=== PATIENT | female | born 1965 | race Caucasian/White ===

== ENCOUNTER 2025-05-04 16:13 | Emergency (ER) | payer BC ==
[~2025-05-04] VITALS: Ht 172.7 cm; Wt 63.7 kg
--- NOTE | 2025-05-04 17:11 | RADIOLOGY REPORT ---
DI CHEST,TWO VIEWS INDICATION: SOB TECHNIQUE: Two views of the chest COMPARISON: None FINDINGS/IMPRESSION: LUNGS: Bibasilar hazy alveolar opacities, incompletely characterized consider follow-up CT of the chest. Biapical pleural-parenchymal scarring. pleural- parenchymal scarring. Consideration for underlying pneumonia MEDIASTINUM: Unremarkable BONES: No acute osseous abnormality OTHER: None
[2025-05-04 17:26] LABS: MEAN PLATELET VOLUME 7.4 FL (7.4-10.4); RED CELL DISTRIBUTION WIDTH 13.4 % (11.5-14.5)
[2025-05-04 17:43] LABS: CREATININE 0.62 MG/DL (0.40-0.90); PRO BRAIN NATRIURETIC PEPTIDE 672 PG/ML (0-125); TOTAL CARBON DIOXIDE 29.0 MMOL/L (24-32); eCRCL 96 ML/MIN; eGFR > 90 ML/MIN
--- NOTE | 2025-05-04 18:24 | Physician Documentation ---
History of Present Illness ~ Chief Complaint: Shortness of Breath Stated Complaint: RIB PAIN,COUGH Time Seen by MD: 19:27 HPI This is a 59-year-old female who presents with cough, shortness breath, and lower chest pain with coughing. Patient reports that over the past kev roximately one-week she has had pain in both her right lower chest and left lower chest with coughing, patient reports currently pain in left lower chest. Patient reports history of pleurisy and reports pain is consistent with a previous pleurisy flare-ups. Patient reports no other acute symptoms or concerns. Medication Reconciliation Allergies: Coded Allergies: No Known Allergies (Unverified , 05/04/25) Review of Systems ROS As stated above in the HPI, otherwise all systems are reviewed and negative. Physical Exam Vital Signs: Heart Rate: 81, Respiratory Rate: 16, BP: 111/40, Pulse Oximetry: 98, Weight: 63.700 Oxygen Flow Rate: 0 Physical Exam VITALS: Reviewed and as above. GENERAL: Alert, nontoxic appearing, no apparent distress. HEENT: RESPIRATORY: No increased work of breathing, no respiratory distress, speaking in full clear sentences, clear lung sounds in all soler CHEST: CV: Regular rate and rhythm no murmur BACK: GI: MUSCULOSKELETAL: SKIN: NEURO: PSYCH: Progress Results/Orders Results/Orders Orders - STAR PACHECO MD Ct Chest (05/04/25 19:50) Completed Orders - STAR PACHECO MD Procalcitonin (05/04/25 19:27) Ct Chest (05/04/25 19:50) Iohexol 300mg/Ml 100ml Inj. (Omnipaque-3 (05/04/25 20:25) Vital Signs 05/04/25 05/04/25 05/04/25 05/04/25 16:27 19:50 19:51 21:28 Pulse 81 74 72 Resp 16 18 16 B/P (MAP) 111/40 119/81 (94) 106/55 (72) Pulse Ox 98 99 98 O2 Flow Rate 0 Laboratory Tests Test 05/04/25 17:03 White Blood Count 13.2 H Red Blood Count 3.90 L Hemoglobin 11.8 L Hematocrit 34.8 L Mean Corpuscular Volume 89.2 Mean Corpuscular Hemoglobin 30.2 Mean Corpuscular Hemoglobin Concent 33.8 Red Cell Distribution Width 13.4 Platelet Count 286 Mean Platelet Volume 7.4 Neutrophils (%) (Auto) 80.6 H Lymphocytes (%) (Auto) 7.8 L Monocytes (%) (Auto) 10.3 Eosinophils (%) (Auto) 0.7 Basophils (%) (Auto) 0.6 Neutrophils # (Auto) 10.6 H Lymphocytes # (Auto) 1.0 L Monocytes # (Auto) 1.4 H Eosinophils # (Auto) 0.1 Basophils # (Auto) 0.1 CBC Comment Sodium Level 145 Potassium Level 3.6 Chloride Level 110 H Carbon Dioxide Level 29.0 Anion Gap 6 L Blood Urea Nitrogen 20 H Creatinine 0.62 Estimated GFR/1.73 m2 > 90 BUN/Creatinine Ratio 32.3 H Glucose Level 100 Calcium Level 8.8 Pro-B-Type Natriuretic Peptide 672 H Albumin 2.1 L Procalcitonin 0.35 Chemistry Comments Medical Decision Making Findings Patient presented to the emergency room for evaluation of chest pain and cough. Differentials include but are not limited to pneumonia, pneumothorax, pulmonary embolism, musculoskeletal pain, ACS therefore emergent labs and imaging indicated. Abnormal chest x-ray that has concern for possible malignancy therefore CT scan was performed which was unusual as well and recommending close follow up. Given patient's history we will begin antibiotics. Vitals reassuring and she is nontoxic appearing and I believe she will do well on outpatient basis with close follow up. Departure Disposition: HOME / SELF CARE / HOMELESS Impression: Primary Impression: Pneumonia Additional Impression: Abnormal CT of the chest Condition: Stable Discharge Instructions: Community-Acquired Pneumonia, Adult Additional Instructions: You had an abnormality seen on your CT scan of indeterminate significance. recommend short-term imaging follow-up in 6-8 weeks to exclude malignancy in the meantime we will treat you for pneumonia. Referrals: NO PRIMARY CARE PROVIDER (PCP) Prescriptions Levofloxacin (Levofloxacin) 500 Mg Tablet 1 TAB PO DAILY for 10 Days, #10 TAB Prov: STAR PACHECO MD 05/04/25 Education Educated: Patient Educated regarding: diagnosis, treatment, need for follow up Signature Scribe Signature: No scribe Attestation: The note accurately reflects work and decisions made by me.Star Pacheco MD 05/04/25 21:37 KILLINA MORRISSEY May 04, 2025 18:24 STAR PACHECO MD May 04, 2025 21:37
[2025-05-04] MEDS ORDERED: iohexol 300mg/ml 100ml inj. ONE (20:25)
--- NOTE | 2025-05-04 20:54 | RADIOLOGY REPORT ---
EXAM: CT CT CHEST W/ IV CONTRAST HISTORY: abn cxr TECHNIQUE: CT angiogram was performed. CT scans at this facility use dose modulation, iterative reconstruction, and/or weight based dosing when appropriate to reduce radiation dose to as low as reasonably achievable. Coronal and sagittal reformations and maximum intensity projection images were created from the transaxial source data by the histology technologist and workstation, as well as 3-D volume rendered images with MIPs. COMPARISON: None FINDINGS: [LOWER NECK]: Unremarkable [LYMPH NODES/MEDIASTINUM]: Right lower paratracheal lymph node, 1.4 cm. Subcarinal lymph node, 1.4 cm. Right hilar lymph node, 1.4 cm. [CARDIOVASCULAR]: Normal cardiac size. No pericardial effusion. No aneurysmal dilatation of the great vessels. No significant coronary artery calcifications. [PULMONARY ARTERIES]: No pulmonary arterial filling defect. Normal caliber of the main pulmonary artery. No evidence of elevated right heart pressures. [UPPER ABDOMEN]: Unremarkable. [MUSCULOSKELETAL]: No acute fracture or aggressive focal osseous lesion. Multilevel degenerative change of the visualized spine. [CHEST WALL]: Unremarkable. [LUNG PARENCHYMA/PLEURAL SPACE]: Trace areas of paraseptal emphysema. Large area of masslike consolidation with air bronchograms in the right middle lobe primarily affecting the lateral segment, measuring 6.5 x 6.4 cm. Additional areas of ground-glass and central areas of consolidation in the right lower lobe, inferior lingula and anterior basilar segment, left lower lobe. No pleural effusion or pneumothorax. IMPRESSION: 1. No definitive pulmonary embolism. 2. Large area of masslike consolidation in the right middle lobe with additional areas of ground-glass and central areas of consolidation in the right lower lobe, inferior lingula and anterior basilar segment, left lower lobe. 3. Mediastinal and right hilar lymphadenopathy. 4. Differential consideration for infection however recommend short-term imaging follow-up in 6-8 weeks to exclude malignancy.
[2025-05-04] MEDS ORDERED: LEVO-65 PO (21:37)
[2025-05-04] MEDS ORDERED: BENZ-38 PO (21:40)
[2025-05-04] MEDS: levoFLOXACIN 750MG TABLET PO ONE (21:54)
[2025-05-04 21:57] VITALS: BP 116/42; PULSE 68; RESP 16; O2SAT 98
== END 2025-05-04 21:59 | disposition home or self-care (01) ==
LOC: ER 16:14
DX: J18.9 Pneumonia, unspecified organism (principal); R07.9 Chest pain, unspecified
CPT/HCPCS: 36415; 71046; 71260; 80048; 83880; 84145; 85025; 99285; Q9967